=== PATIENT | male | born 1995 | race Caucasian/White ===

== ENCOUNTER 2016-08-22 08:00 | Outpatient (CLI) | payer OTHER ==
--- NOTE | 2016-08-22 10:14 | DIAGNOSTIC IMAGING REPORT ---
PROCEDURE: US ABDOMEN ULTRASOUND-COMPLETE INDICATION: RUQ ABD PAIN TECHNIQUE: Bowens scale and color Doppler sonographic images of the abdomen were obtained without comparison. COMPARISON: None. FINDINGS: The liver is normal in size, contour, but has a dense echotexture. No mass or intrahepatic biliary dilatation. The gallbladder is normal without stones or sludge. The wall is normal thickness measuring 2.3 mm No pericholecystic fluid or Mann sign. The extrahepatic common duct is normal measuring 2.6 mm The pancreas is not well seen. The abdominal aorta is normal in its course and caliber. The retrohepatic inferior vena cava is patent. There is appropriate hepatopetal flow in the portal vein. The right kidney measures 12.3 cm in length. The left kidney measures 12.4 cm in length. Both kidneys demonstrate normal morphology and cortical thickness without hydronephrosis, cyst, solid mass, or shadowing calculus. Color Doppler imaging demonstrates normal blood flow in each kidney. The spleen is mildly enlarged measuring 14.3 cm in length. There is no perihepatic or perisplenic ascites. IMPRESSION: 1. Dense hepatic echotexture suggesting intrinsic liver disease. 2. Mild splenomegaly. 3. Pancreas not well seen.
== END 2016-08-22 23:00 ==
LOC: US SRH 08:00
DX: R10.11 Right upper quadrant pain (principal); R16.1 Splenomegaly, not elsewhere classified; R93.5 Abnormal findings on diagnostic imaging of other abdominal regions, including retroperitoneum